=== PATIENT | female | born 1995 | race Caucasian/White ===

== ENCOUNTER → 2016-10-24 | Outpatient (CLI) | payer OTHER | LOC: COL.RAD 07:21 | DX: R51 Headache (principal) | CPT/HCPCS: Q9967 ==

== ENCOUNTER 2018-07-13 19:47 | Emergency (ER) | payer OTHER ==
[~2018-07-13] VITALS: Ht 162.6 cm; Wt 82.7 kg
[2018-07-13 20:01] VITALS: TEMP 99.1
[2018-07-13] MEDS ORDERED: AMOXICILLIN 8751 TAB PO (20:19)
[2018-07-13 21:45] VITALS: BP 116/70; PULSE 96
[2018-07-13] MEDS ORDERED: LEXAPRO 10MG10 MG PO (22:44)
[2018-07-13] MEDS ORDERED: NORGESTIMATE (22:45)
[2018-07-13] MEDS ORDERED: SYNTHROID0.088 MG/T PO (22:45)
[2018-07-13] MEDS ORDERED: ETHINYL ESTRADIOL (22:45)
[2018-07-13] MEDS ORDERED: THE MEDICINE S200 M2 PO (22:45)
[2018-07-13] MEDS ORDERED: MAGNESIUM CHELA27 MG PO (22:46)
[2018-07-13] MEDS ORDERED: EC-NAPROSYN375 MG PO (22:46)
[2018-07-13] MEDS ORDERED: INDERAL 10MG10 MG PO (22:46)
[2018-07-13] MEDS ORDERED: AMERGE 2.5MG T2.5 MG PO (22:46)
== END 2018-07-13 21:50 | disposition home or self-care (01) ==
LOC: COL.ER 19:47
DX: S71.152A Open bite, left thigh, initial encounter (principal); E03.9 Hypothyroidism, unspecified; W54.0XXA Bitten by dog, initial encounter; Y92.009 Unspecified place in unspecified non-institutional (private) residence as the place of occurrence of the external cause
CPT/HCPCS: 90375

== ENCOUNTER 2018-07-16 21:28 | Outpatient (RCR) | payer OTHER ==
[~2018-07-16 21:28] MED LIST: AMERGE 2.5MG T2.5 MG PO; AMOXICILLIN 8751 TAB PO; EC-NAPROSYN375 MG PO; ETHINYL ESTRADIOL; INDERAL 10MG10 MG PO; LEXAPRO 10MG10 MG PO; MAGNESIUM CHELA27 MG PO; NORGESTIMATE; SYNTHROID0.088 MG/T PO; THE MEDICINE S200 M2 PO
[2018-07-27 18:48] VITALS: BP 117/62; PULSE 75; TEMP 98.7
== END 2018-10-14 | disposition home or self-care (01) ==
LOC: COL.ER
DX: Z20.3 Contact with and (suspected) exposure to rabies (principal); Z23 Encounter for immunization

== ENCOUNTER 2018-07-20 17:46 | Outpatient (RCR) | payer OTHER | END 2018-07-28 05:54 | disposition home or self-care (01) | LOC: COL.ER 17:46 | DX: Z01.89 Encounter for other specified special examinations (principal); Z53.9 Procedure and treatment not carried out, unspecified reason ==

== ENCOUNTER → 2019-09-24 | Outpatient (CLI) | payer OTHER ==
[2019-09-24 14:21] LABS: HEMATOCRIT 41.2 % (37.0-47.0); HEMOGLOBIN 13.8 g/dl (12.5-16.0); MEAN CELL VOLUME 85 fl (80.0-100.0); MEAN CORPUSCULAR HEMOGLOBIN 28 pg (27.0-31.0); MEAN CORPUSCULAR HGB CONC 34 g/dl (33.0-37.0); MEAN PLATELET VOLUME 8.7 fl (7.4-10.4); PLATELET COUNT 320 K/mm3 (130-400); RED BLOOD COUNT 4.87 M/mm3 (4.10-5.30); REDCELL DISTRIBUTION WIDTH-CV 12.1 % (11.5-14.5)
[2019-09-24 14:37] LABS: C-REACTIVE PROTEIN 1.4 mg/dL (0.0-0.9); URIC ACID 4.8 mg/dL (2.5-6.2)
[2019-09-24 14:39] LABS: ERYTHROCYTE SEDIMENTATION RATE 16 mm/hr (0-20)
[2019-09-24 23:18] LABS: RHEUMATOID FACTOR-SCREEN <15 IU/mL (0-29)
== END ==
LOC: COL.LAB 13:45
PROVIDERS: Orthopaedic Surgery
DX: M25.561 Pain in right knee (principal)

== ENCOUNTER → 2020-05-31 | Outpatient (CLI) | payer OTHER | LOC: COL.RAD 07:06 | DX: M79.644 Pain in right finger(s) (principal); Z18.81 Retained glass fragments ==